=== PATIENT | female | born 1975 | race Caucasian/White ===

== ENCOUNTER 2016-09-13 20:26 | Emergency (ER) | payer OTHER ==
[2016-09-13 22:00] VITALS: BP 135/94
[2016-09-13] MEDS ORDERED: Amoxicillin/Clavulanate K 875-125 MG Tab PO ONE (22:11)
--- NOTE | 2016-09-13 22:17 | EDM.PDOC ---
ED HPI ANIMAL BITE - General Time Seen by Provider: 09/13/16 22:00 Chief Complaint: Bite:Animal, Insect Stated Complaint: DOG BIT [id number] Source of Information: Reports: Patient History Limitations: Reports: No limitations - History of Present Illness INITIAL COMMENTS - FREE TEXT/NARRATIVE: This 40 yo female patient reports to the ED due to a dog bite. The patient reports she was bitten by her own dog last night (09/13/15) while at home. After getting bitten, the patient washed the area with soap and water. The patient started to notice increased pain and swelling starting today. The patient reports the dog is up to date on vaccinations. Onset of Symptoms: Reports: gradual Symptom Onset Date: 09/12/16 Duration: Reports: Day(s): (1), Constant, Getting worse Location: Reports: upper extremity, left Quality: Reports: Ache, Dull Severity: moderate Place of Occurrence: home Improves with: Reports: None Worsens with: Reports: None Context: Reports: provoked, bitten Description of Animal: Reports: dog, family pet, known animal, well appearing, immunized, animal able to be watched Associated Symptoms: no other symptoms - Related Data Allergies Allergy/AdvReac Type Severity Reaction Status Date / Time No Known Allergies Allergy Verified 09/13/16 21:32 Home Meds: Home Meds [place] Carbonate 600 mg PO DAILY 12/28/14 [History] ARIPiprazole [Abilify] 7.5 mg PO DAILY 09/13/16 [History] LORazepam 2 mg PO BEDTIME 09/13/16 [History] [place] Carbonate 900 mg PO BEDTIME 09/13/16 [History] Topiramate [Topamax] 100 mg PO BID 09/13/16 [History] Past Medical History HEENT History: Reports: Impaired vision Psychiatric History: Reports: Bipolar, Depression, Suicide attempt Social & Family History - Tobacco Use Smoking Status *Q: Former Smoker Years of Tobacco use: 20 Used Tobacco, but Quit: Yes Month Tobacco Last Used: 08/2016 Second Hand Smoke Exposure: Yes - Caffeine Use Caffeine Use: Reports: Coffee - Recreational Drug Use Recreational Drug Use: No ED ROS GENERAL - Review of Systems Review Of Systems: ROS reveals no pertinent complaints other than HPI. ED EXAM, ANIMAL BITE - Physical Exam Exam: See Below Exam Limited By: No limitations General Appearance: alert, WD/WN, mild distress Eye Exam: bilateral eye: EOMI, normal inspection, PERRL Ears: normal external exam, normal canal, hearing grossly normal, normal TMs Nose: normal inspection, normal mucosa, no blood Throat/Mouth: Normal inspection, Normal lips, Normal teeth, Normal gums, Normal oropharynx, Normal voice, No airway compromise Head: atraumatic, normocephalic Neck: normal inspection, supple, non-tender, full range of motion Respiratory/Chest: no respiratory distress, lungs clear, normal breath sounds, no accessory muscle use, chest non-tender Cardiovascular: normal peripheral pulses, regular rate, rhythm, no edema, no gallop, no JVD, no murmur, no rub GI/Abdominal: normal bowel sounds, soft, non tender, no organomegaly, no distention, no abnormal bruit, no mass (Female) Exam: Deferred Rectal (Female) Exam: Deferred Back Exam: normal inspection, full range of motion, NT Extremities: normal range of motion, no pedal edema, normal capillary refill, other (erythema over the area between her left 1st and 2nd digit with a small wound (healed in the middle)) Neurological: alert, oriented, CN II-XII intact, normal cognition, normal gait, normal reflexes, no motor/sensory deficits Psychiatric: normal affect, normal mood Skin Exam: Warm/dry, DRY, I, Normal color, NR Lymphatic: no adenopathy Course - Vital Signs Last Recorded V/S: Last Vital Signs Temp 37.2 C 09/13/16 21:31 Pulse 92 09/13/16 21:31 Resp 16 09/13/16 21:31 BP 135/94 H 09/13/16 21:45 Pulse Ox 100 09/13/16 21:31 - Orders/Labs/Meds Meds: Medications Discontinued Medications Generic Name Dose Route Start Last Admin Trade Name Freq PRN Reason Stop Dose Admin Amoxicillin/Clavulanate Potassium 1 tab 09/13/16 22:11 09/13/16 22:16 Augmentin 875 Mg/125 Mg PO 09/13/16 22:12 1 tab ONETIME ONE Administration Departure - Departure Time of Disposition: 22:15 Disposition: Home, Self-Care 01 Condition: fair Clinical Impression: Dog bite Qualifiers: Encounter type: initial encounter Qualified Code(s): W54.0XXA - Bitten by dog, initial encounter Instructions: Animal Bite, [id number] Forms: ED Department Discharge Care Plan Goals: The patient was advised of the examination results during the visit. The patient was given an oral dose of Augmentin while in the ED. The patient was discharged with Augmentin (500/125) #2 to take 1 by mouth in the morning and 1 by mouth at noon. The patient was also given a script for Augmentin (500/125) to take 1 by mouth 3 times per day for 7 days. If the patient has any additional symptoms or concerns, the patient should follow-up with her primary care facility or return to the emergency department.
[2016-09-13] MEDS ORDERED: Amoxicillin/Clavulanate K 500-125 MG Tab PO ONE (22:27)
[2016-09-13] MEDS ORDERED: Amoxicillin/Clavulanate K 500-125 MG Tab ONE (22:27)
== END 2016-09-13 22:35 | disposition home or self-care (01) ==
LOC: DL.ED 20:26
DX: S61.432A Puncture wound without foreign body of left hand, initial encounter (principal); F32.9 Major depressive disorder, single episode, unspecified; Z79.899 Other long term (current) drug therapy; Z87.891 Personal history of nicotine dependence; W54.0XXA Bitten by dog, initial encounter
CPT/HCPCS: 99283; A9270

== ENCOUNTER 2023-04-08 07:37 | Inpatient (IN) | payer OTHER ==
[2023-04-08] MEDS ORDERED: Iopamidol 755 Mg/ML 100 ML Bottle IVPUSH ONE (07:50)
[2023-04-08] MEDS ORDERED: Sodium Chloride 0.9% 10 ML Syringe FLUSH PRN (07:50)
[2023-04-08 08:03] LABS: BASOPHILS PERCENT AUTO 0.3 % (0.0-1.0); EOSINOPHILS PERCENT AUTO 1.4 % (1.0-3.0); HEMATOCRIT 42.8 % (37.0-47.0); HEMOGLOBIN 14.1 g/dL (12.0-16.0); LYMPHOCYTES PERCENT AUTO 9.6 % (20.5-50.1); MEAN CORPUSCULAR HEMOGLOBIN 32.3 pg (27.0-34.0); MEAN CORPUSCULAR HGB CONC 32.9 g/dL (33.0-35.0); MEAN CORPUSCULAR VOLUME 98.2 fL (80-100); MONOCYTES PERCENT AUTO 7.2 % (2-8); NEUTROPHILS PERCENT AUTO 81.5 % (42.2-75.2); PLATELET COUNT,PLT 350 10^3/uL (150-450); RED BLOOD CELL COUNT 4.36 10^6/uL (4.2-5.4); WHITE BLOOD CELL COUNT,WBC 15.4 10^3/uL (5.0-10.0)
[2023-04-08] MEDS ORDERED: Sodium Chloride 0.9% 1,000 ML IV ONE (08:10)
[2023-04-08 08:19] LABS: INR 0.9 (0.9-1.2); PROTHROMBIN TIME 9.7 SEC (9.0-12.0)
[2023-04-08 08:25] LABS: ALANINE AMINOTRANSFERASE,ALT 47 U/L (14-59); ALBUMIN 3.2 g/dL (3.4-5.0); ALKALINE PHOSPHATASE 113 U/L (46-116); ANION GAP 14.8 mEq/L (7-13); ASPARTATE AMNIOTRANSFERASE,AST 36 U/L (15-37); BILIRUBIN TOTAL 0.6 mg/dL (0.2-1.0); BLOOD UREA NITROGEN,BUN 9 mg/dL (7-18); BUN/CREATININE RATIO 7.6 (No establ ref range); CALCIUM 9.2 mg/dL (8.5-10.1); CARBON DIOXIDE,CO2 25 mmol/L (21-32); CHLORIDE,CL 98 mmol/L (98-107); CREATININE 1.19 mg/dL (0.55-1.02); EST CRCL DRUG DOSING (CG) 41.08 mL/min; GLUCOSE RANDOM 123 mg/dL (70-99); MAGNESIUM 1.6 mg/dL (1.8-2.4); POTASSIUM,K 3.8 mmol/L (3.5-5.1); SODIUM,NA 134 mmol/L (136-145)
[2023-04-08 08:30] LABS: A/G RATIO 0.67; ESTIMATED GFR 56 mL/min (>=60); LACTIC ACID 2.2 mmol/L (0.4-2.0)
[2023-04-08 08:31] LABS: B-TYPE NATRIURETIC PEPTIDE,BNP 53 pg/ml (0-100)
[2023-04-08] MEDS ORDERED: Dexamethasone 4 MG/ML SDV IVPUSH ONE (08:51)
[2023-04-08 09:04] LABS: CORONAVIRUS COVID-19 NAA NEGATIVE (NEGATIVE); INFLUENZA A NAA NEGATIVE (NEGATIVE); INFLUENZA B NAA NEGATIVE (NEGATIVE)
[2023-04-08] MEDS ORDERED: Piperacillin/Tazobactam 3.375 GM in Sodium Chloride 0.9% 100 ML IV ONE (09:18)
[2023-04-08] MEDS ORDERED: Acetaminophen 500 MG Tab PO ONE (09:54)
[2023-04-08] MEDS ORDERED: Ketorolac 30 MG/ML SDV IVPUSH ONE (09:54)
[2023-04-08 10:10] LABS: CORONAVIRUS COVID-19 NAA NEGATIVE (NEGATIVE); INFLUENZA A NAA NEGATIVE (NEGATIVE); INFLUENZA B NAA NEGATIVE (NEGATIVE)
[2023-04-08 10:17] LABS: O2 DELIVERY DEVICE NON REBR MASK
[2023-04-08 10:19] LABS: BASE EXCESS ARTERIAL -2 mmol/L ((-2)-(+3)); BICARBONATE,ARTERIAL 21.6 mmol/L (22-26); O2 SATURATION ARTERIAL 94 % (95-100); PCO2 ARTERIAL 37 mmHg (35-45); PH,ARTERIAL 7.39 (7.35-7.45); PO2 ARTERIAL 66 mmHg (70-100)
[2023-04-08 10:20] LABS: ALLEN TEST positive
[2023-04-08] MEDS ORDERED: Magnesium Hydroxide 400 MG/5 ML Susp 30 ML Cup PO PRN (11:35)
[2023-04-08] MEDS ORDERED: Ketorolac 30 MG/ML SDV IM PRN (11:35)
[2023-04-08] MEDS ORDERED: Acetaminophen 325 MG Tab PO PRN (11:35)
[2023-04-08] MEDS ORDERED: LORazepam 2 MG/ML SDV IV PRN (11:35)
[2023-04-08] MEDS ORDERED: Sennosides/Docusate Sodium 50-8.6 MG Tab PO PRN (11:35)
[2023-04-08] MEDS ORDERED: Ondansetron 4 MG/2 ML SDV IVPUSH PRN (11:35)
[2023-04-08] MEDS ORDERED: Zolpidem 5 MG Tab PO PRN (11:35)
[2023-04-08] MEDS ORDERED: Albuterol/Ipratropium 3.0-0.5 MG/3 ML Neb Soln NEB PRN (11:35)
[2023-04-08] MEDS ORDERED: MVI, Adult with Vitamin K 10 ML, Folic Acid 1 MG, Thiamine 100 MG in Lactated Ringers 1... IV ONE ×4 (11:35)
[2023-04-08] MEDS ORDERED: LORazepam 0.5 MG Tab PO PRN (11:35)
[2023-04-08] MEDS ORDERED: HYDROmorphone 0.5 MG/0.5 ML Syringe IVPUSH PRN (11:35)
[2023-04-08] MEDS ORDERED: Naloxone 2 MG/2 ML Syringe IVPUSH PRN (11:40)
[2023-04-08] MEDS ORDERED: 50% Dextrose in Water 50 ML Syringe IVPUSH PRN (11:52)
[2023-04-08] MEDS ORDERED: Glucagon,Human Recombinant 1 MG Vial IM PRN (11:52)
[2023-04-08] MEDS ORDERED: Magnesium Sulfate/Water 2 GM in Premix Bag 1 BAG IV ONE ×2 (11:52→17:00)
[2023-04-08] MEDS: Insulin Lispro 100 Units/ML 3 ML Vial SUBCUT SCH ×4 (12:31→21:19)
[2023-04-08] MEDS: Piperacillin/Tazobactam 3.375 GM in Sodium Chloride 0.9% 100 ML IV SCH ×2 (16:44→21:17)
[2023-04-08] MEDS ORDERED: guaiFENesin 600 MG Tab.ER PO ONE (17:00)
[2023-04-08] MEDS: LORazepam 1 MG Tab PO SCH (17:34)
[2023-04-08] MEDS: amLODIPine 5 MG Tab PO SCH (17:34)
[2023-04-08] MEDS: LURASIDONE HCL 120 MG PO SCH (17:36)
[2023-04-08] MEDS: Formoterol/Mometasone 200-5 MCG 8.8 GM Inhaler IH SCH (18:08)
[2023-04-08] MEDS ORDERED: Sodium Chloride 0.9% 1,000 ML IV SCH (19:15)
[2023-04-08] MEDS ORDERED: methylPREDNISolone Sodium Succinate 125 MG/2 ML SDV IVPUSH ONE (19:19)
[2023-04-08] MEDS ORDERED: hydrALAZINE 20 MG/ML SDV IVPUSH PRN (19:26)
[2023-04-08] MEDS ORDERED: Metoprolol Tartrate 5 MG/5 ML SDV IVPUSH PRN (19:26)
[2023-04-08] MEDS ORDERED: Dexamethasone 4 MG/ML SDV IVPUSH SCH (21:00)
[2023-04-08] MEDS: guaiFENesin 600 MG Tab.ER PO SCH (21:18)
[2023-04-08] MEDS: Multivitamin Tab PO SCH (21:18)
[2023-04-08] MEDS: Saccharomyces Boulardii (Probiotic) 250 MG Cap PO SCH (21:18)
[2023-04-08] MEDS: QUEtiapine 100 MG Tab PO SCH (21:18)
[2023-04-08] MEDS: Folic Acid 1 MG Tab PO SCH (21:18)
[2023-04-08] MEDS: Acetaminophen/oxyCODONE 325-5 MG Tab PO PRN (22:19)
[2023-04-09] MEDS: Insulin Lispro 100 Units/ML 3 ML Vial SUBCUT SCH ×4 (01:42→22:18)
[2023-04-09] MEDS: Levothyroxine 50 MCG Tab PO SCH (05:13)
[2023-04-09] MEDS: Piperacillin/Tazobactam 3.375 GM in Sodium Chloride 0.9% 100 ML IV SCH ×4 (05:14→21:58)
[2023-04-09] MEDS: methylPREDNISolone Sodium Succinate 125 MG/2 ML SDV IVPUSH SCH ×3 (05:14→17:37)
[2023-04-09] MEDS: Formoterol/Mometasone 200-5 MCG 8.8 GM Inhaler IH SCH ×3 (05:19→22:29)
[2023-04-09] MEDS: Pantoprazole 40 MG Tab.CR PO SCH ×3 (05:45→17:35)
[2023-04-09] MEDS ORDERED: Pantoprazole 40 MG Tab.CR PO SCH (06:00)
[2023-04-09 06:44] LABS: BASOPHILS PERCENT AUTO 0.2 % (0.0-1.0); HEMATOCRIT 39.3 % (37.0-47.0); HEMOGLOBIN 12.8 g/dL (12.0-16.0); LYMPHOCYTES PERCENT AUTO 4.5 % (20.5-50.1); MEAN CORPUSCULAR HEMOGLOBIN 32.2 pg (27.0-34.0); MEAN CORPUSCULAR HGB CONC 32.6 g/dL (33.0-35.0); MEAN CORPUSCULAR VOLUME 98.7 fL (80-100); MONOCYTES PERCENT AUTO 3.8 % (2-8); NEUTROPHILS PERCENT AUTO 91.5 % (42.2-75.2); PLATELET COUNT,PLT 343 10^3/uL (150-450); RED BLOOD CELL COUNT 3.98 10^6/uL (4.2-5.4); WHITE BLOOD CELL COUNT,WBC 15.9 10^3/uL (5.0-10.0)
[2023-04-09 07:00] LABS: ALBUMIN 2.5 g/dL (3.4-5.0); ANION GAP 13.8 mEq/L (7-13); BILIRUBIN TOTAL 0.6 mg/dL (0.2-1.0); BUN/CREATININE RATIO 12.9 (No establ ref range); C-REACTIVE PROTEIN 23.05 ng/dL (<=0.50); CALCIUM 8.3 mg/dL (8.5-10.1); CREATININE 0.85 mg/dL (0.55-1.02); EST CRCL DRUG DOSING (CG) 57.51 mL/min; MAGNESIUM 2.5 mg/dL (1.8-2.4); POTASSIUM,K 3.8 mmol/L (3.5-5.1); PROTEIN TOTAL,TP 7.3 g/dL (6.4-8.2)
[2023-04-09 07:04] LABS: A/G RATIO 0.52
[2023-04-09] MEDS: Albuterol/Ipratropium 3.0-0.5 MG/3 ML Neb Soln NEB SCH ×5 (09:09→23:42)
[2023-04-09] MEDS: guaiFENesin 600 MG Tab.ER PO SCH ×2 (09:09→22:13)
[2023-04-09] MEDS: Saccharomyces Boulardii (Probiotic) 250 MG Cap PO SCH ×2 (09:11→22:13)
[2023-04-09] MEDS: FLUoxetine 10 MG Cap PO SCH (09:12)
[2023-04-09] MEDS: Metoprolol Tartrate 50 MG Tab PO SCH (09:13)
[2023-04-09] MEDS: Thiamine 100 MG in Sodium Chloride 0.9% 50 ML IV SCH (09:16)
[2023-04-09] MEDS ORDERED: VANCOmycin 1.5 GM/300 ML 1.5 GM in Premix Bag 1 BAG IV SCH (10:00)
[2023-04-09] MEDS: Cholecalciferol (Vitamin D3) 25 MCG Tab PO SCH (11:01)
[2023-04-09] MEDS: Acetaminophen/oxyCODONE 325-5 MG Tab PO PRN ×2 (11:12→15:25)
[2023-04-09] MEDS: Nicotine 21 MG/24 Hr Patch TRDERM SCH (11:33)
[2023-04-09] MEDS: AMILORIDE HCL 5 MG PO SCH (11:34)
[2023-04-09] MEDS: LAMOTRIGINE 200 MG PO SCH (11:34)
[2023-04-09] MEDS: Tiotropium Bromide 4 GM Inhalation Spray (2.5mcg/1 dose; 10 doses) INH SCH (13:10)
[2023-04-09] MEDS: amLODIPine 5 MG Tab PO SCH (17:35)
[2023-04-09] MEDS: LORazepam 1 MG Tab PO SCH (17:36)
[2023-04-09] MEDS: LURASIDONE HCL 120 MG PO SCH (17:37)
[2023-04-09] MEDS: QUEtiapine 100 MG Tab PO SCH (22:13)
[2023-04-09] MEDS: Folic Acid 1 MG Tab PO SCH (22:13)
[2023-04-09] MEDS: Multivitamin Tab PO SCH (22:13)
[2023-04-10] MEDS: methylPREDNISolone Sodium Succinate 125 MG/2 ML SDV IVPUSH SCH ×4 (00:34→18:27)
[2023-04-10] MEDS: Albuterol/Ipratropium 3.0-0.5 MG/3 ML Neb Soln NEB SCH ×6 (02:39→21:08)
[2023-04-10] MEDS: Insulin Lispro 100 Units/ML 3 ML Vial SUBCUT SCH ×4 (02:39→21:33)
[2023-04-10] MEDS: Piperacillin/Tazobactam 3.375 GM in Sodium Chloride 0.9% 100 ML IV SCH ×4 (03:47→22:18)
[2023-04-10] MEDS: Levothyroxine 50 MCG Tab PO SCH (05:53)
[2023-04-10] MEDS: Formoterol/Mometasone 200-5 MCG 8.8 GM Inhaler IH SCH ×2 (06:24→17:34)
[2023-04-10] MEDS: Tiotropium Bromide 4 GM Inhalation Spray (2.5mcg/1 dose; 10 doses) INH SCH (06:24)
[2023-04-10 06:35] LABS: BASOPHILS PERCENT AUTO 0.1 % (0.0-1.0); HEMOGLOBIN 11.9 g/dL (12.0-16.0); LYMPHOCYTES PERCENT AUTO 3.9 % (20.5-50.1); MEAN CORPUSCULAR HGB CONC 32.2 g/dL (33.0-35.0); MEAN CORPUSCULAR VOLUME 99.5 fL (80-100); MONOCYTES PERCENT AUTO 5.1 % (2-8); NEUTROPHILS PERCENT AUTO 90.9 % (42.2-75.2); PLATELET COUNT,PLT 361 10^3/uL (150-450); RED BLOOD CELL COUNT 3.72 10^6/uL (4.2-5.4); WHITE BLOOD CELL COUNT,WBC 15.9 10^3/uL (5.0-10.0)
[2023-04-10 06:53] LABS: A/G RATIO 0.52; ALBUMIN 2.4 g/dL (3.4-5.0); ANION GAP 12.9 mEq/L (7-13); BILIRUBIN TOTAL 0.4 mg/dL (0.2-1.0); BUN/CREATININE RATIO 14.1 (No establ ref range); C-REACTIVE PROTEIN 12.87 ng/dL (<=0.50); CALCIUM 8.7 mg/dL (8.5-10.1); CREATININE 0.92 mg/dL (0.55-1.02); EST CRCL DRUG DOSING (CG) 53.13 mL/min; MAGNESIUM 2.3 mg/dL (1.8-2.4); POTASSIUM,K 3.9 mmol/L (3.5-5.1)
[2023-04-10] MEDS: FLUoxetine 10 MG Cap PO SCH (08:55)
[2023-04-10] MEDS: Saccharomyces Boulardii (Probiotic) 250 MG Cap PO SCH ×2 (08:57→21:04)
[2023-04-10] MEDS: Pantoprazole 40 MG Tab.CR PO SCH ×2 (08:59→18:22)
[2023-04-10] MEDS: guaiFENesin 600 MG Tab.ER PO SCH ×2 (08:59→21:04)
[2023-04-10] MEDS: Metoprolol Tartrate 50 MG Tab PO SCH (09:00)
[2023-04-10] MEDS: Nicotine 21 MG/24 Hr Patch TRDERM SCH (09:06)
[2023-04-10] MEDS: AMILORIDE HCL 5 MG PO SCH (09:08)
[2023-04-10] MEDS: Thiamine 100 MG in Sodium Chloride 0.9% 50 ML IV SCH (09:09)
[2023-04-10] MEDS: Cholecalciferol (Vitamin D3) 25 MCG Tab PO SCH (11:33)
[2023-04-10] MEDS: LAMOTRIGINE 200 MG PO SCH (12:50)
[2023-04-10] MEDS: Polyethylene Glycol 3350 Powder 17 GM Packet PO PRN (15:33)
[2023-04-10] MEDS: LORazepam 1 MG Tab PO SCH (16:57)
[2023-04-10] MEDS: amLODIPine 5 MG Tab PO SCH (16:57)
[2023-04-10] MEDS: LURASIDONE HCL 120 MG PO SCH (17:00)
[2023-04-10] MEDS: Acetaminophen/oxyCODONE 325-5 MG Tab PO PRN (18:25)
[2023-04-10] MEDS: QUEtiapine 100 MG Tab PO SCH (21:03)
[2023-04-10] MEDS: Multivitamin Tab PO SCH (21:04)
[2023-04-10] MEDS: Folic Acid 1 MG Tab PO SCH (21:05)
[2023-04-11] MEDS: methylPREDNISolone Sodium Succinate 125 MG/2 ML SDV IVPUSH SCH ×4 (01:19→18:06)
[2023-04-11] MEDS: Acetaminophen/oxyCODONE 325-5 MG Tab PO PRN ×3 (01:27→16:00)
[2023-04-11] MEDS: Albuterol/Ipratropium 3.0-0.5 MG/3 ML Neb Soln NEB SCH ×6 (02:14→21:17)
[2023-04-11] MEDS: Insulin Lispro 100 Units/ML 3 ML Vial SUBCUT SCH ×5 (02:14→17:06)
[2023-04-11] MEDS: Piperacillin/Tazobactam 3.375 GM in Sodium Chloride 0.9% 100 ML IV SCH ×4 (03:54→21:26)
[2023-04-11] MEDS: Levothyroxine 50 MCG Tab PO SCH (05:34)
[2023-04-11 06:20] LABS: HEMATOCRIT 36.3 % (37.0-47.0); HEMOGLOBIN 11.5 g/dL (12.0-16.0); MEAN CORPUSCULAR HEMOGLOBIN 31.8 pg (27.0-34.0); MEAN CORPUSCULAR HGB CONC 31.7 g/dL (33.0-35.0); MEAN CORPUSCULAR VOLUME 100.3 fL (80-100); PLATELET COUNT,PLT 379 10^3/uL (150-450); RED BLOOD CELL COUNT 3.62 10^6/uL (4.2-5.4); WHITE BLOOD CELL COUNT,WBC 13.2 10^3/uL (5.0-10.0)
[2023-04-11 06:30] LABS: BASOPHILS PERCENT AUTO 0.1 % (0.0-1.0); LYMPHOCYTES PERCENT AUTO 4.6 % (20.5-50.1); MONOCYTES PERCENT AUTO 4.8 % (2-8); NEUTROPHILS PERCENT AUTO 90.5 % (42.2-75.2)
[2023-04-11 06:41] LABS: ALBUMIN 2.4 g/dL (3.4-5.0); BILIRUBIN TOTAL 0.5 mg/dL (0.2-1.0); BUN/CREATININE RATIO 15.2 (No establ ref range); C-REACTIVE PROTEIN 5.81 ng/dL (<=0.50); CALCIUM 8.5 mg/dL (8.5-10.1); CREATININE 0.92 mg/dL (0.55-1.02); EST CRCL DRUG DOSING (CG) 53.13 mL/min; MAGNESIUM 2.4 mg/dL (1.8-2.4); PROTEIN TOTAL,TP 6.7 g/dL (6.4-8.2)
[2023-04-11 06:42] LABS: A/G RATIO 0.56
[2023-04-11] MEDS: Formoterol/Mometasone 200-5 MCG 8.8 GM Inhaler IH SCH ×2 (06:47→18:07)
[2023-04-11] MEDS: Tiotropium Bromide 4 GM Inhalation Spray (2.5mcg/1 dose; 10 doses) INH SCH (06:48)
[2023-04-11 06:52] LABS: BAND PERCENT MAN 5 %; LYMPHOCYTES PERCENT MAN 10 % (20-50); MONOCYTES PERCENT MAN 4 % (2-8); SEG NEUTROPHILS PERCENT MAN 81 % (42-75)
[2023-04-11] MEDS: Saccharomyces Boulardii (Probiotic) 250 MG Cap PO SCH ×2 (09:26→21:16)
[2023-04-11] MEDS: FLUoxetine 10 MG Cap PO SCH (09:26)
[2023-04-11] MEDS: Metoprolol Tartrate 50 MG Tab PO SCH (09:27)
[2023-04-11] MEDS: guaiFENesin 600 MG Tab.ER PO SCH ×2 (09:27→21:16)
[2023-04-11] MEDS: Pantoprazole 40 MG Tab.CR PO SCH ×2 (09:28→18:07)
[2023-04-11] MEDS: Nicotine 21 MG/24 Hr Patch TRDERM SCH (09:28)
[2023-04-11] MEDS: AMILORIDE HCL 5 MG PO SCH (09:29)
[2023-04-11] MEDS: Thiamine 100 MG in Sodium Chloride 0.9% 50 ML IV SCH (09:31)
[2023-04-11] MEDS: Cholecalciferol (Vitamin D3) 25 MCG Tab PO SCH (11:10)
[2023-04-11] MEDS: LAMOTRIGINE 200 MG PO SCH (12:29)
[2023-04-11] MEDS: Polyethylene Glycol 3350 Powder 17 GM Packet PO PRN (12:34)
[2023-04-11] MEDS: guaiFENesin/Dextromethorphan 100-10 MG/5 ML Soln 5 ML Cup PO PRN (12:59)
[2023-04-11] MEDS: LURASIDONE HCL 120 MG PO SCH (18:07)
[2023-04-11] MEDS: amLODIPine 5 MG Tab PO SCH (18:07)
[2023-04-11] MEDS ORDERED: LORazepam 1 MG Tab PO SCH (19:00)
[2023-04-11] MEDS: LORazepam 1 MG Tab PO SCH (20:09)
[2023-04-11] MEDS: Multivitamin Tab PO SCH (21:16)
[2023-04-11] MEDS: QUEtiapine 100 MG Tab PO SCH (21:17)
[2023-04-12] MEDS: methylPREDNISolone Sodium Succinate 125 MG/2 ML SDV IVPUSH SCH ×4 (00:25→20:45)
[2023-04-12] MEDS: Albuterol/Ipratropium 3.0-0.5 MG/3 ML Neb Soln NEB SCH ×7 (01:06→22:21)
[2023-04-12] MEDS: Piperacillin/Tazobactam 3.375 GM in Sodium Chloride 0.9% 100 ML IV SCH ×4 (03:15→22:31)
[2023-04-12] MEDS: LORazepam 1 MG Tab PO SCH ×2 (06:16→18:02)
[2023-04-12] MEDS: Levothyroxine 50 MCG Tab PO SCH (06:16)
[2023-04-12 06:26] LABS: BASOPHILS PERCENT AUTO 0.1 % (0.0-1.0); EOSINOPHILS PERCENT AUTO 0.1 % (1.0-3.0); HEMATOCRIT 38.6 % (37.0-47.0); HEMOGLOBIN 12.5 g/dL (12.0-16.0); LYMPHOCYTES PERCENT AUTO 4.4 % (20.5-50.1); MEAN CORPUSCULAR HEMOGLOBIN 32.2 pg (27.0-34.0); MEAN CORPUSCULAR HGB CONC 32.4 g/dL (33.0-35.0); MEAN CORPUSCULAR VOLUME 99.5 fL (80-100); MONOCYTES PERCENT AUTO 5.6 % (2-8); NEUTROPHILS PERCENT AUTO 89.8 % (42.2-75.2); PLATELET COUNT,PLT 424 10^3/uL (150-450); RED BLOOD CELL COUNT 3.88 10^6/uL (4.2-5.4); WHITE BLOOD CELL COUNT,WBC 13.9 10^3/uL (5.0-10.0)
[2023-04-12] MEDS: Formoterol/Mometasone 200-5 MCG 8.8 GM Inhaler IH SCH ×2 (06:29→17:01)
[2023-04-12] MEDS: Tiotropium Bromide 4 GM Inhalation Spray (2.5mcg/1 dose; 10 doses) INH SCH (06:29)
[2023-04-12 06:54] LABS: ALBUMIN 2.7 g/dL (3.4-5.0); ANION GAP 13.1 mEq/L (7-13); BILIRUBIN TOTAL 0.5 mg/dL (0.2-1.0); BUN/CREATININE RATIO 14.2 (No establ ref range); C-REACTIVE PROTEIN 2.81 ng/dL (<=0.50); CALCIUM 8.8 mg/dL (8.5-10.1); CREATININE 1.06 mg/dL (0.55-1.02); EST CRCL DRUG DOSING (CG) 46.11 mL/min; MAGNESIUM 2.3 mg/dL (1.8-2.4); POTASSIUM,K 4.1 mmol/L (3.5-5.1); PROTEIN TOTAL,TP 7.1 g/dL (6.4-8.2)
[2023-04-12 06:57] LABS: A/G RATIO 0.61
[2023-04-12] MEDS: Insulin Lispro 100 Units/ML 3 ML Vial SUBCUT SCH ×3 (07:57→17:08)
[2023-04-12] MEDS: Thiamine 100 MG in Sodium Chloride 0.9% 50 ML IV SCH (08:12)
[2023-04-12] MEDS: FLUoxetine 10 MG Cap PO SCH (08:13)
[2023-04-12] MEDS: Saccharomyces Boulardii (Probiotic) 250 MG Cap PO SCH ×2 (08:13→20:39)
[2023-04-12] MEDS: Pantoprazole 40 MG Tab.CR PO SCH ×2 (08:13→17:15)
[2023-04-12] MEDS: Metoprolol Tartrate 50 MG Tab PO SCH (08:13)
[2023-04-12] MEDS: guaiFENesin 600 MG Tab.ER PO SCH ×2 (08:14→20:39)
[2023-04-12] MEDS: Nicotine 21 MG/24 Hr Patch TRDERM SCH (08:14)
[2023-04-12] MEDS: AMILORIDE HCL 5 MG PO SCH (08:23)
[2023-04-12] MEDS: Cholecalciferol (Vitamin D3) 25 MCG Tab PO SCH (11:09)
[2023-04-12] MEDS: LAMOTRIGINE 200 MG PO SCH (11:10)
[2023-04-12] MEDS: Benzonatate 100 MG Cap PO PRN ×2 (11:10→20:39)
[2023-04-12] MEDS: Acetaminophen/oxyCODONE 325-5 MG Tab PO PRN ×2 (11:17→20:39)
[2023-04-12] MEDS: guaiFENesin/Dextromethorphan 100-10 MG/5 ML Soln 5 ML Cup PO PRN ×2 (13:47→20:39)
[2023-04-12] MEDS: amLODIPine 5 MG Tab PO SCH (17:14)
[2023-04-12] MEDS: LURASIDONE HCL 120 MG PO SCH (17:15)
[2023-04-12] MEDS: QUEtiapine 100 MG Tab PO SCH (20:38)
[2023-04-12] MEDS: Multivitamin Tab PO SCH (20:39)
[2023-04-13] MEDS: Albuterol/Ipratropium 3.0-0.5 MG/3 ML Neb Soln NEB SCH ×6 (02:58→22:32)
[2023-04-13] MEDS: Piperacillin/Tazobactam 3.375 GM in Sodium Chloride 0.9% 100 ML IV SCH ×4 (05:24→22:32)
[2023-04-13] MEDS: Levothyroxine 50 MCG Tab PO SCH (05:24)
[2023-04-13] MEDS: Acetaminophen/oxyCODONE 325-5 MG Tab PO PRN ×3 (05:30→20:12)
[2023-04-13] MEDS: Tiotropium Bromide 4 GM Inhalation Spray (2.5mcg/1 dose; 10 doses) INH SCH (06:21)
[2023-04-13] MEDS: Formoterol/Mometasone 200-5 MCG 8.8 GM Inhaler IH SCH ×2 (06:22→17:37)
[2023-04-13] MEDS: Pantoprazole 40 MG Tab.CR PO SCH ×2 (07:14→17:20)
[2023-04-13] MEDS: methylPREDNISolone Sodium Succinate 125 MG/2 ML SDV IVPUSH SCH ×3 (07:14→20:15)
[2023-04-13] MEDS: LORazepam 1 MG Tab PO SCH ×2 (07:14→20:12)
[2023-04-13] MEDS: Insulin Lispro 100 Units/ML 3 ML Vial SUBCUT SCH ×3 (08:20→17:19)
[2023-04-13] MEDS: FLUoxetine 10 MG Cap PO SCH (08:48)
[2023-04-13] MEDS: Saccharomyces Boulardii (Probiotic) 250 MG Cap PO SCH ×2 (08:48→20:14)
[2023-04-13] MEDS: Metoprolol Tartrate 50 MG Tab PO SCH (08:49)
[2023-04-13] MEDS: guaiFENesin 600 MG Tab.ER PO SCH ×2 (08:49→20:14)
[2023-04-13] MEDS: Nicotine 21 MG/24 Hr Patch TRDERM SCH (08:50)
[2023-04-13] MEDS: AMILORIDE HCL 5 MG PO SCH (08:53)
[2023-04-13] MEDS: Thiamine 100 MG in Sodium Chloride 0.9% 50 ML IV SCH (08:55)
[2023-04-13] MEDS: LAMOTRIGINE 200 MG PO SCH (11:39)
[2023-04-13] MEDS: Cholecalciferol (Vitamin D3) 25 MCG Tab PO SCH (11:40)
[2023-04-13] MEDS: Benzonatate 100 MG Cap PO PRN ×2 (11:48→20:14)
[2023-04-13] MEDS: guaiFENesin/Dextromethorphan 100-10 MG/5 ML Soln 5 ML Cup PO PRN (11:48)
[2023-04-13] MEDS: amLODIPine 5 MG Tab PO SCH (17:20)
[2023-04-13] MEDS: LURASIDONE HCL 120 MG PO SCH (17:21)
[2023-04-13] MEDS: Multivitamin Tab PO SCH (20:14)
[2023-04-13] MEDS: QUEtiapine 100 MG Tab PO SCH (20:14)
[2023-04-14] MEDS: Albuterol/Ipratropium 3.0-0.5 MG/3 ML Neb Soln NEB SCH ×6 (02:57→21:37)
[2023-04-14] MEDS: Piperacillin/Tazobactam 3.375 GM in Sodium Chloride 0.9% 100 ML IV SCH ×4 (04:57→21:40)
[2023-04-14] MEDS: Formoterol/Mometasone 200-5 MCG 8.8 GM Inhaler IH SCH ×2 (06:35→17:22)
[2023-04-14] MEDS: Tiotropium Bromide 4 GM Inhalation Spray (2.5mcg/1 dose; 10 doses) INH SCH (06:35)
[2023-04-14] MEDS: LORazepam 1 MG Tab PO SCH ×2 (06:38→21:01)
[2023-04-14] MEDS: Levothyroxine 50 MCG Tab PO SCH (06:38)
[2023-04-14] MEDS: methylPREDNISolone Sodium Succinate 125 MG/2 ML SDV IVPUSH SCH ×2 (06:38→21:02)
[2023-04-14 06:46] LABS: BASOPHILS PERCENT AUTO 0.2 % (0.0-1.0); EOSINOPHILS PERCENT AUTO 0.1 % (1.0-3.0); HEMATOCRIT 41.6 % (37.0-47.0); HEMOGLOBIN 13.2 g/dL (12.0-16.0); LYMPHOCYTES PERCENT AUTO 6.8 % (20.5-50.1); MEAN CORPUSCULAR HEMOGLOBIN 31.7 pg (27.0-34.0); MEAN CORPUSCULAR HGB CONC 31.7 g/dL (33.0-35.0); MEAN CORPUSCULAR VOLUME 99.8 fL (80-100); MONOCYTES PERCENT AUTO 7.7 % (2-8); NEUTROPHILS PERCENT AUTO 85.2 % (42.2-75.2); PLATELET COUNT,PLT 423 10^3/uL (150-450); RED BLOOD CELL COUNT 4.17 10^6/uL (4.2-5.4); WHITE BLOOD CELL COUNT,WBC 11.4 10^3/uL (5.0-10.0)
[2023-04-14 07:12] LABS: ALBUMIN 2.8 g/dL (3.4-5.0); ANION GAP 11.4 mEq/L (7-13); BILIRUBIN TOTAL 0.5 mg/dL (0.2-1.0); BUN/CREATININE RATIO 11.9 (No establ ref range); C-REACTIVE PROTEIN 0.89 ng/dL (<=0.50); CALCIUM 9.1 mg/dL (8.5-10.1); CREATININE 1.01 mg/dL (0.55-1.02); EST CRCL DRUG DOSING (CG) 48.4 mL/min; MAGNESIUM 2.3 mg/dL (1.8-2.4); POTASSIUM,K 4.4 mmol/L (3.5-5.1); PROTEIN TOTAL,TP 6.9 g/dL (6.4-8.2)
[2023-04-14 07:16] LABS: A/G RATIO 0.68
[2023-04-14] MEDS: Thiamine 100 MG in Sodium Chloride 0.9% 50 ML IV SCH (08:46)
[2023-04-14] MEDS: guaiFENesin 600 MG Tab.ER PO SCH ×2 (09:13→21:01)
[2023-04-14] MEDS: Saccharomyces Boulardii (Probiotic) 250 MG Cap PO SCH ×2 (09:13→21:01)
[2023-04-14] MEDS: FLUoxetine 10 MG Cap PO SCH (09:13)
[2023-04-14] MEDS: Metoprolol Tartrate 50 MG Tab PO SCH (09:14)
[2023-04-14] MEDS: Pantoprazole 40 MG Tab.CR PO SCH ×2 (09:14→17:31)
[2023-04-14] MEDS: Nicotine 21 MG/24 Hr Patch TRDERM SCH (09:15)
[2023-04-14] MEDS: AMILORIDE HCL 5 MG PO SCH (09:21)
[2023-04-14] MEDS: Insulin Lispro 100 Units/ML 3 ML Vial SUBCUT SCH ×3 (09:28→17:27)
[2023-04-14] MEDS: Cholecalciferol (Vitamin D3) 25 MCG Tab PO SCH (11:39)
[2023-04-14] MEDS: LAMOTRIGINE 200 MG PO SCH (11:49)
[2023-04-14] MEDS: Acetaminophen/oxyCODONE 325-5 MG Tab PO PRN ×2 (12:33→20:59)
[2023-04-14] MEDS: amLODIPine 5 MG Tab PO SCH (16:38)
[2023-04-14] MEDS: LURASIDONE HCL 120 MG PO SCH (17:28)
[2023-04-14] MEDS: QUEtiapine 100 MG Tab PO SCH (20:59)
[2023-04-14] MEDS: Multivitamin Tab PO SCH (21:00)
[2023-04-14] MEDS: Benzonatate 100 MG Cap PO PRN (21:00)
[2023-04-15] MEDS: Albuterol/Ipratropium 3.0-0.5 MG/3 ML Neb Soln NEB SCH ×3 (02:02→10:06)
[2023-04-15] MEDS: Piperacillin/Tazobactam 3.375 GM in Sodium Chloride 0.9% 100 ML IV SCH (04:56)
[2023-04-15] MEDS: Tiotropium Bromide 4 GM Inhalation Spray (2.5mcg/1 dose; 10 doses) INH SCH (06:16)
[2023-04-15] MEDS: Formoterol/Mometasone 200-5 MCG 8.8 GM Inhaler IH SCH (06:16)
[2023-04-15] MEDS: LORazepam 1 MG Tab PO SCH (06:17)
[2023-04-15] MEDS: Levothyroxine 50 MCG Tab PO SCH (06:17)
[2023-04-15 06:33] LABS: HEMATOCRIT 43.2 % (37.0-47.0); HEMOGLOBIN 13.9 g/dL (12.0-16.0); MEAN CORPUSCULAR HEMOGLOBIN 31.9 pg (27.0-34.0); MEAN CORPUSCULAR HGB CONC 32.2 g/dL (33.0-35.0); MEAN CORPUSCULAR VOLUME 99.1 fL (80-100); PLATELET COUNT,PLT 442 10^3/uL (150-450); RED BLOOD CELL COUNT 4.36 10^6/uL (4.2-5.4); WHITE BLOOD CELL COUNT,WBC 10.1 10^3/uL (5.0-10.0)
[2023-04-15 06:45] LABS: BASOPHILS PERCENT AUTO 0.2 % (0.0-1.0); EOSINOPHILS PERCENT AUTO 0.5 % (1.0-3.0); LYMPHOCYTES PERCENT AUTO 7.1 % (20.5-50.1); MONOCYTES PERCENT AUTO 7.4 % (2-8); NEUTROPHILS PERCENT AUTO 84.8 % (42.2-75.2)
[2023-04-15 06:57] LABS: ALBUMIN 2.9 g/dL (3.4-5.0); ANION GAP 12.1 mEq/L (7-13); BILIRUBIN TOTAL 0.5 mg/dL (0.2-1.0); BUN/CREATININE RATIO 13.3 (No establ ref range); C-REACTIVE PROTEIN 0.51 ng/dL (<=0.50); CREATININE 1.2 mg/dL (0.55-1.02); EST CRCL DRUG DOSING (CG) 40.73 mL/min; MAGNESIUM 2.2 mg/dL (1.8-2.4); POTASSIUM,K 4.1 mmol/L (3.5-5.1)
[2023-04-15 06:59] LABS: A/G RATIO 0.71
[2023-04-15 07:12] LABS: LYMPHOCYTES PERCENT MAN 12 % (20-50); MONOCYTES PERCENT MAN 5 % (2-8); SEG NEUTROPHILS PERCENT MAN 83 % (42-75)
[2023-04-15] MEDS: Pantoprazole 40 MG Tab.CR PO SCH (09:06)
[2023-04-15] MEDS: Insulin Lispro 100 Units/ML 3 ML Vial SUBCUT SCH (09:06)
[2023-04-15] MEDS: Nicotine 21 MG/24 Hr Patch TRDERM SCH (10:06)
[2023-04-15] MEDS: methylPREDNISolone Sodium Succinate 125 MG/2 ML SDV IVPUSH SCH (10:07)
[2023-04-15] MEDS: Saccharomyces Boulardii (Probiotic) 250 MG Cap PO SCH (10:08)
[2023-04-15] MEDS: Metoprolol Tartrate 50 MG Tab PO SCH (10:08)
[2023-04-15] MEDS: FLUoxetine 10 MG Cap PO SCH (10:09)
[2023-04-15] MEDS: AMILORIDE HCL 5 MG PO SCH (10:11)
[2023-04-15] MEDS: LAMOTRIGINE 200 MG PO SCH (10:12)
[2023-04-15] MEDS: Thiamine 100 MG in Sodium Chloride 0.9% 50 ML IV SCH (10:14)
[2023-04-15] MEDS: guaiFENesin 600 MG Tab.ER PO SCH (10:14)
[2023-04-15 15:51] VITALS: BP 115/76; PULSE 81
== END 2023-04-15 14:25 | disposition home or self-care (01) | DRG 871 ==
LOC: DL.ED 07:37 → DL.MS 10:15
PROVIDERS: ADMIT Internal Medicine; ATTEND Internal Medicine
PROC: 3E03329 Introduction of Other Anti-infective into Peripheral Vein, Percutaneous Approach (ICD-10-PCS; principal; 2023-04-08)
PROC: 4A033R1 Measurement of Arterial Saturation, Peripheral, Percutaneous Approach (ICD-10-PCS; 2023-04-08)
DX: A41.9 Sepsis, unspecified organism (principal); J18.9 Pneumonia, unspecified organism; Z20.822 Contact with and (suspected) exposure to COVID-19; J96.01 Acute respiratory failure with hypoxia; D84.9 Immunodeficiency, unspecified; E87.1 Hypo-osmolality and hyponatremia; N17.9 Acute kidney failure, unspecified; E87.20 Acidosis, unspecified; I10 Essential (primary) hypertension; L40.9 Psoriasis, unspecified; K21.9 Gastro-esophageal reflux disease without esophagitis; F17.210 Nicotine dependence, cigarettes, uncomplicated; F41.9 Anxiety disorder, unspecified; F31.9 Bipolar disorder, unspecified; E66.9 Obesity, unspecified; E88.09 Other disorders of plasma-protein metabolism, not elsewhere classified; F10.90 Alcohol use, unspecified, uncomplicated; E83.42 Hypomagnesemia; R73.9 Hyperglycemia, unspecified; Z79.899 Other long term (current) drug therapy; Z68.35 Body mass index [BMI] 35.0-35.9, adult; Z11.52 Encounter for screening for COVID-19; Z79.890 Hormone replacement therapy
CPT/HCPCS: 0240U; 36415; 36600; 51702; 71045; 71275; 80053; 80202; 82803; 82947; 83605; 83735; 83880; 84145; 84484; 85025; 85610; 86140; 87040; 93005; 93010; 94010; 94060; 94640; 94660; 94664; 94667; 94668; 94760; 94762; 96361; 96365; 96368; 96375; 97161-GP; 97165-GO; 99232; 99233; 99238; 99285; 99285-25; A9270-GY; J1100; J1170; J1815-GY; J1885; J2543; J2930; J3370; J3411; J3475; J3490; J7030; J7050; J7120; J7620-GY; Q9967

== ENCOUNTER 2023-05-25 16:10 | Emergency (ER) | payer OTHER ==
[2023-05-25] MEDS ORDERED: Sodium Chloride 0.9% 10 ML Syringe FLUSH PRN (16:23)
[2023-05-25] MEDS ORDERED: Aspirin 81 MG Tab.Chew PO ONE (16:24)
[2023-05-25] MEDS ORDERED: Naproxen 250 MG Tab PO ONE (17:43)
[2023-05-25 18:06] VITALS: BP 126/108; PULSE 84
== END 2023-05-25 18:03 | disposition home or self-care (01) ==
LOC: DL.ED 16:10
DX: R07.89 Other chest pain (principal); Z79.899 Other long term (current) drug therapy
CPT/HCPCS: 36415; 71045; 84484; 85379; 93005; 99285; A9270-GY